=== PATIENT | female | born 1985 | race Caucasian/White ===

== ENCOUNTER → 2017-06-17 18:38 | Outpatient (CLI) | payer MEDICAID, SELFPAY | PROVIDERS: Visit Provider Obstetrics & Gynecology | DX: Z34.82 Encounter for supervision of other normal pregnancy, second trimester (principal); Z3A.00 Weeks of gestation of pregnancy not specified ==

== ENCOUNTER → 2017-09-02 15:10 | Outpatient (CLI) | payer MEDICAID, SELFPAY ==
[2017-09-02 16:07] LABS: Hematocrit 39.9 % (37-47); Hemoglobin 13.5 g/dl (12.0-15.0); Mean Corp Hgb Conc 33.8 g/gl (32-36); Mean Corpuscular Hgb 32.5 pg (27.0-32.0); Mean Corpuscular Volume 95.9 fL (81-99); Mean Platelet Vol. 10.1 fl (6.2-12.0); Platelet Count 256 K/mm3 (150-450); Red Blood Count 4.16 M/mm3 (4.2-5.4); White Blood Count 6.6 K/mm3 (4.4-11.0)
[2017-09-02 16:10] LABS: Glucose Challenge Gest 1H 50g 88 mg/dL (70-140)
[2017-09-02 16:11] LABS: Scan Indicated on CBC? Y/N NO
[2017-09-05 11:16] LABS: Vitamin B12 428 pg/mL (211-911)
== END ==
PROVIDERS: Visit Provider Obstetrics & Gynecology
DX: Z34.83 Encounter for supervision of other normal pregnancy, third trimester (principal)
CPT/HCPCS: 36415; 82607; 82746; 82950; 85027; 86850

== ENCOUNTER → 2017-10-14 16:28 | Outpatient (CLI) | payer MEDICAID, SELFPAY ==
[2017-10-14 19:33] LABS: Group B Strep DNA By PCR Negative (Negative); Internal Control PASS; Probe Check PASS; Specimen Processing Control PASS
== END ==
PROVIDERS: Visit Provider Obstetrics & Gynecology
DX: Z36.85 Encounter for antenatal screening for Streptococcus B (principal)
CPT/HCPCS: 87081; 87653

== ENCOUNTER 2017-11-08 06:49 | Inpatient (IN) | payer MEDICAID, SELFPAY ==
[2017-11-08 06:43] LABS: ROM Internal Control Test YES-OK TO RESULT pt. (Internal QC)
[2017-11-08 06:45] LABS: ROM Patient Test POSITIVE (Negative)
[2017-11-08] MEDS: Lactated Ringers 1,000 ML 50 ML IV ×3 (07:05→19:31)
[2017-11-08 07:26] LABS: Hematocrit 39.6 % (37-47); Hemoglobin 13.1 g/dl (12.0-15.0); Mean Corp Hgb Conc 33.1 g/gl (32-36); Mean Corpuscular Hgb 31.3 pg (27.0-32.0); Mean Corpuscular Volume 94.7 fL (81-99); Mean Platelet Vol. 11.2 fl (6.2-12.0); Platelet Count 209 K/mm3 (150-450); RBC Distribution Width CV 13.4 % (11.6-14.6); RBC Distribution Width SD 45.9 fl (35.1-43.9); Red Blood Count 4.18 M/mm3 (4.2-5.4); White Blood Count 8.6 K/mm3 (4.4-11.0)
[2017-11-08 07:27] LABS: Scan Indicated on CBC? Y/N NO
[2017-11-08 07:30] VITALS: BMI 26.3
[2017-11-08] MEDS: miSOPROStol 25 MCG TABLET PO (09:31)
[2017-11-08] MEDS: Nalbuphine 10 MG/ML Ampul IV (13:25)
--- NOTE | 2017-11-08 13:49 | PCM.PN.BLA ---
Progress Note LABOR PROGRESS NOTE Relates lower back discomfort. Contractions are mild and q20-30 minutes when she feels them. AVSS GEN - NAD, AAO x 3 FHR 120, minimal variability, no accelerations or decelerations TOCO 2/10 min SVE 1.5-2/75/-3, soft and anterior A/P: 32yo G1 @ 38 5/7wga with PROM, IOL, Cat II FHR -FHR reviewed and Cat I -II, overall reassuring. -Cervix favorable, recommend proceeding with pitocin. Reviewed risks, benefits including potential for heart rate changes requiring emergent section for distress. -Pt agreeable to pitocin. -Continuous monitoring -GBS negative
[2017-11-08] MEDS: Oxytocin 30 units/NS 500 ml 30 UNITS/500 ML IV.SOLN IV (14:48)
[2017-11-08] MEDS: Ondansetron 4 MG/2 ML Vial IV (15:50)
[2017-11-08] MEDS: fentaNYL-bupivacaine (epidural) 100 ML BAG EPIDURAL (18:27)
--- NOTE | 2017-11-08 20:43 | PCM.PN.BLA ---
Progress Note LABOR PROGRESS NOTE Teresita relates fatigue from lack of sleep since early this morning, nausea and shakiness. AVSS GEN - NAD, AAO x 3 FHR 130, minimal variability, + decelerations, + acceleration with scalp stimulation TOCO - contraction pattern unclear SVE FD/100/+1 station with minimal caput and direct OA. A/P: 32yo G1 @ 38 5/7wga on pitocin in labor, Cat II FHR -Will start pushing -Anticipate vaginal delivery -Maternal and statuses overall reassuring
[2017-11-08] MEDS: Oxytocin 30 units/NS 500 ml 30 UNITS/500 ML IV.SOLN 334 UNITS IV (22:31)
[2017-11-08] MEDS: Oxytocin 30 units/NS 500 ml 30 UNITS/500 ML IV.SOLN 167 UNITS IV (23:01)
[2017-11-08] MEDS: Methylergonovine 0.2 MG/ML Ampul IM (23:03)
--- NOTE | 2017-11-08 23:10 | PCM.OB.VAG ---
- Problem List (1) 38 weeks gestation of Status: Acute (2) (spontaneous vaginal delivery) Status: Acute Vaginal Delivery Maternal Presentation: Spontaneous Rupture of Membranes Method of Induction: Pitocin, Cytotec Medical Reason for Induction: Premature Rupture of Membranes Amniotic Membrane Rupture Type: Spontaneous at home Rupture of Membrane time: 0130h 11/08/17 Amniotic Fluid Description: Clear Final DARRYN: 11/17/17 Gestational age: 38 Weeks and 5 Days Date of Procedure: 11/08/17 Pre-Operative Diagnosis: 38 5/7wga, PROM Post-Operative Diagnosis: 38 5/7wga, PROM Surgery/ Procedure Performed: Spontaneous Vaginal Delivery Anesthesiologist: Meena Stanley Type of Anesthesia: Epidural Description of Procedure: Patient was FD/+3 station. She pushed to deliver infant head and a nuchal cord was reduced. She subsequently delivered the body to reveal a male infant. The infant was placed on the maternal abdomen and further attended by nursery personnel. Cord gases were obtained as well as a cord blood specimen. The placenta delivered spontaneously and appeared intact on inspection. A left labial laceration with vaginal extension was repaired with 3-0 Vicryl Rapide. A cervical laceration was repaired with 2-0 Vicryl. The patient continued to have bleeding without hemorrhage and an intrauterine exam was performed with retrieval of approximately 100cc of blood and organized clot. The fundus was firm. She was given a dose of Methergine IM x 1 with hemostasis attained. Sponge and needle counts were correct x 2. Presentation: Vertex Placental Delivery Description: Spontaneous Placenta Disposition: [facility] Cord Vessel Description: 3 Vessels Nuchal Cord Compression: With compression Cord Gases drawn per routine: ABG, VBG Cord Entanglement: Around neck x 1, loose Drain: Causey to straight drain Estimated Blood Loss: 400 ml A gender: Male (1 minute): 8 (5 minute): 9 Episiotomy Description: None Laceration: Vaginal Extension/lac, 1st degree Medications given after delivery: IV Pitocin, IM Methergin Complications: None
--- NOTE | 2017-11-08 23:22 | DCINST_ITS ---
Discharge Diet: No Restrictions Discharge Activity: Return to Normal Activity, May not drive while taking narcotic pain medications., May Shower May resume sexual activity in: 6 weeks Call your doctor if you observe: Fever of 101 or Higher, Inability to urinate, Inability to have a bowel movement, Using more than one pad per hour, Shortness of breath, Chest pain, Uncontrolled pain Additional Instructions: If you experience any of the following, contact your healthcare provider. * Bleeding that soaks a pad every hour for 2 hours * Fever 100.4 or higher * Unrelieved incision or abdominal pain * Swelling, redness, discharge or bleeding from your incision or episiotomy site * Your incision begins to separate * Problems urinating (including inability to urinate or burning while urinating) . * Visual changes * Severe headache * Flu-like symptoms * Pain or redness in one of both of your breasts * Pain, warmth, tenderness or swelling in your legs, especially the calf area * Frequent nausea and vomiting * Symptoms of depression or anxiety If you experience any of the following, call 911 or go to the nearest Emergency Room. * Chest pain * Problems breathing * Seizure activity * Partial or complete paralysis of a body part, slurred speech, weakness or drooping of the face, or a sudden inability to walk or hold your balance Allergies/Adverse Reactions: Allergies No Known Allergies Allergy (Verified 11/08/17 06:28) Medications to take at Discharge Ibuprofen 600 mg PO TID PRN #30 tab 11/08/17 Prenatabs FA 1 tab PO DAILY 11/08/17 The following prescriptions were given: Ibuprofen 600 mg PO TID PRN #30 tab PRN Reason: Pain Please Follow Up With: Mala Montoya MD When: 6 weeks Primary Care Physician: Care Physician,No Primary [Primary Care Provider] - Test Results: Test results from this visit will be discussed in further detail at your follow- up appointment, if applicable.
[2017-11-09 04:45] VITALS: BP 105/46; PULSE 64; RESP 16; TEMP 36.7
[2017-11-09 07:00] LABS: Hematocrit 34.3 % (37-47); Hemoglobin 11.7 g/dl (12.0-15.0); Mean Corp Hgb Conc 34.1 g/gl (32-36); Mean Corpuscular Hgb 31.8 pg (27.0-32.0); Mean Corpuscular Volume 93.2 fL (81-99); Mean Platelet Vol. 10.8 fl (6.2-12.0); Platelet Count 194 K/mm3 (150-450); RBC Distribution Width CV 12.9 % (11.6-14.6); RBC Distribution Width SD 42.5 fl (35.1-43.9); Red Blood Count 3.68 M/mm3 (4.2-5.4); White Blood Count 16.8 K/mm3 (4.4-11.0)
[2017-11-09 07:05] LABS: Scan Indicated on CBC? Y/N NO
[2017-11-09] MEDS: Prenatal Vits Tablet 1 TABLET PO (08:00)
[2017-11-09] MEDS: Ibuprofen 600 MG Tablet PO ×3 (08:00→21:24)
[2017-11-09 08:30] VITALS: BP 97/53; PULSE 74; RESP 16; TEMP 36.6; O2SAT 95
--- NOTE | 2017-11-09 09:47 | PCM.PN.OB ---
Patient Problems: Active and Suspected Problems 38 weeks gestation of (Acute) (spontaneous vaginal delivery) (Acute) Subjective: No issues overnight. She feels better rested. Infant nursing well on right, but continues working on latch on left. He spoon fed overnight. Denies heavy lochia. Motrin helps with cramping. Objective: AVSS - Physical Exam General: Alert, Oriented x3, Cooperative, No apparent distress HEENT: Atraumatic, Normocephalic Lungs: Clear to auscultation, Normal air movement Cardiovascular: Regular rate, Regular Rhythm, Normal S1, Normal S2 Abdomen: Bowel Sounds Present, Soft, Non Tender, Non-Distended, - - Fundus firm and nontender, lochia moderate Extremities: No edema, No Calf Tenderness Neurological: Neuro grossly intact Psych/Mental Status: Normal Affect, Appropriate, Alert and oriented to time, place, person, mood and affect Vital Signs Temp Pulse Resp BP Pulse Ox 97.8 F 74 16 97/53 L 95 11/09/17 08:30 11/09/17 08:30 11/09/17 08:30 11/09/17 08:30 11/09/17 08:30 Oxygen Delivery Method Room Air Weight: 73.936 kg Body Mass Index (BMI) 26.3 Intake and Output for Last 24 Hours 11/07/17 11/08/17 11/09/17 23:59 23:59 23:59 Intake Total 3593 / 3593 334 / 334 Output Total 2350 / 2350 2800 / 2800 Balance 1243 / 1243 -2466 / -2466 Laboratory Tests Past 24 Hrs 11/08/17 11/09/17 07:05 06:45 WBC 16.8 H RBC 3.68 L Hgb 11.7 L Hct 34.3 L MCV 93.2 MCH 31.8 MCHC 34.1 RDW 12.9 RDW Differential 42.5 Plt Count 194 MPV 10.8 Antibody Screen POSITIVE Antibody Identification ANTI-D Medical Necessity - Tobacco Use Smoking Status: Never smoker Assessment/Plan All Active Problems 38 weeks gestation of (Acute) (spontaneous vaginal delivery) (Acute) 32yo PPD#1 s/p doing well. -Rh negative, also Rh negative - -Routine care
[2017-11-09] MEDS: Acetaminophen 325 MG Tablet PO ×2 (10:46→17:42)
[2017-11-09 12:30] VITALS: BP 105/59; PULSE 80; RESP 16; TEMP 36.7; O2SAT 98
[2017-11-09 15:58] VITALS: BP 111/67; PULSE 83; RESP 16; TEMP 36.6; O2SAT 97
[2017-11-09 19:45] VITALS: BP 91/66; PULSE 74; RESP 17; TEMP 36.7
[2017-11-10 01:40] VITALS: BP 93/48; PULSE 62; RESP 17; TEMP 36.7
--- NOTE | 2017-11-10 07:54 | PCM.PN.OB ---
Patient Problems: Active and Suspected Problems 38 weeks gestation of (Acute) (spontaneous vaginal delivery) (Acute) Subjective: Teresita is without complaints. Denies heavy lochia. Infant clusterfed overnight. Objective: AVSS - Physical Exam General: Alert, Oriented x3, Cooperative HEENT: Atraumatic, Normocephalic Lungs: Clear to auscultation, Normal air movement Cardiovascular: Regular rate, Regular Rhythm, Normal S1, Normal S2 Abdomen: Soft, Non Tender, Non-Distended, - - Fundus firm and nontender Extremities: No edema, No Calf Tenderness Neurological: Neuro grossly intact Psych/Mental Status: Normal Affect, Appropriate, Alert and oriented to time, place, person, mood and affect Vital Signs Temp Pulse Resp BP Pulse Ox 98.0 F 62 17 93/48 L 97 11/10/17 01:40 11/10/17 01:40 11/10/17 01:40 11/10/17 01:40 11/09/17 15:58 Oxygen Delivery Method Room Air Weight: 73.936 kg Body Mass Index (BMI) 26.3 Intake and Output for Last 24 Hours 11/08/17 11/09/17 11/10/17 23:59 23:59 23:59 Intake Total 3593 / 3593 334 / 334 Output Total 2350 / 2350 2800 / 2800 Balance 1243 / 1243 -2466 / -2466 Medical Necessity - Tobacco Use Smoking Status: Never smoker Assessment/Plan All Active Problems 38 weeks gestation of (Acute) (spontaneous vaginal delivery) (Acute) 32yo PPD#2 s/p doing well. -Rh negative, also Rh negative - no Rhogam indicated - -Routine care -d/c home today
--- NOTE | 2017-11-10 07:57 | PCM.DC.SUM ---
Discharge Date and Diagnosis - Problem List Patient Problems: Active and Suspected Problems 38 weeks gestation of (Acute) (spontaneous vaginal delivery) (Acute) Date of Admission: 11/08/17 Date of Discharge: 11/10/17 - Primary Discharge Diagnosis Active and Suspected Problems 38 weeks gestation of (Acute) (spontaneous vaginal delivery) (Acute) Hospital Course and Treatment Summary of Care Provided: The patient is a 32 year old F 1 admitted at 38 5/7wga with SROM. She received augmentation and subsequently had an uncomplicated , male , 6lb 2oz. She had an uncomplicated post- course and was discharged to home on day #2. Discharge Diet: No Restrictions Discharge Activity: Return to Normal Activity, May not drive while taking narcotic pain medications., May Shower May resume sexual activity in: 6 weeks Call your doctor if you observe: Fever of 101 or Higher, Inability to urinate, Inability to have a bowel movement, Using more than one pad per hour, Shortness of breath, Chest pain, Uncontrolled pain Home Medications: Medications to take at Discharge Ibuprofen 600 mg PO TID PRN #30 tab 11/08/17 Prenatabs FA 1 tab PO DAILY 11/08/17 Following Prescrptions Were Given to Patient: Ibuprofen 600 mg PO TID PRN #30 tab PRN Reason: Pain Primary Care Physician: Care Physician,No Primary [Primary Care Provider] - Please Follow Up With: Mala Montoya MD Medical Necessity - Tobacco Use Smoking Status: Never smoker Meaningful Use Info Meaningful Use Diagnoses (Choose all that apply): None applicable
[2017-11-10] MEDS: Ibuprofen 600 MG Tablet PO (09:20)
[2017-11-10] MEDS: Prenatal Vits Tablet 1 TABLET PO (09:20)
[2017-11-10 09:23] VITALS: BP 120/60; PULSE 64; RESP 16; TEMP 36.6; O2SAT 96
[2017-11-10 12:00] VITALS: BP 101/51; PULSE 91; RESP 16; TEMP 37.2; O2SAT 99
[2017-11-10 13:55] VITALS: BP 118/63; PULSE 99; RESP 16; TEMP 36.7; O2SAT 99
--- NOTE | 2017-11-14 17:48 | NURSING ---
follow up call complete. Patient happy with her care. Did mention headache and blurred vision, suggested to patient to call and explained why. patient thought it was due to not wearing glasses but would keep an eye on her symptoms. going well and denies need for consult at this time
== END 2017-11-10 14:40 | disposition home or self-care (01) | DRG 373 ==
LOC: WPOUT 06:49 → WP 22:26
PROVIDERS: Admitting Provider Obstetrics & Gynecology; Visit Provider Obstetrics & Gynecology
DX: O42.92 Full-term premature rupture of membranes, unspecified as to length of time between rupture and onset of labor (principal); O76 Abnormality in fetal heart rate and rhythm complicating labor and delivery; O69.1XX0 Labor and delivery complicated by cord around neck, with compression, not applicable or unspecified; O71.3 Obstetric laceration of cervix; Z3A.38 38 weeks gestation of pregnancy; Z37.0 Single live birth
CPT/HCPCS: 59025; 59050; 84112; 85027; 86850; 86870; 86900; 99218; J7120; G0378; J2405

== ENCOUNTER 2018-01-15 13:05 | Outpatient (CLI) | payer SELFPAY | END 2018-01-15 13:35 | disposition home or self-care (01) | LOC: LABSPEC 13:09 → WP 13:10 | PROVIDERS: Visit Provider Obstetrics & Gynecology | DX: Z39.1 Encounter for care and examination of lactating mother (principal); N64.4 Mastodynia | CPT/HCPCS: 96152 ==